=== PATIENT | male | born 1990 | race Caucasian/White ===

== ENCOUNTER 2022-01-17 14:20 | Emergency (ER) | payer MEDICAID, SELFPAY ==
[2022-01-17 14:22] VITALS: BP 134/92; PULSE 137; RESP 20; TEMP 35.8; O2SAT 97; BMI 34.7
--- NOTE | 2022-01-17 14:28 | EKG12_ITS ---
Test Reason : Blood Pressure : / mmHG Vent. Rate : 121 BPM Atrial Rate : 121 BPM P-R Int : 160 ms QRS Dur : 084 ms QT Int : 306 ms P-R-T Axes : 045 058 008 degrees QTc Int : 434 ms Sinus tachycardia Cannot rule out Inferior infarct , age undetermined T wave abnormality, consider lateral ischemia Abnormal ECG Confirmed by HAVEN LOCKETT, ARTIS ([id number]), acquisition editor LEVI RAO ([id number]) on 01/21/2022 1:15:32 PM Referred By: Confirmed By:ARTIS OROURKE MD
[2022-01-17 14:44] VITALS: RESP 16; O2SAT 97
[2022-01-17 14:56] LABS: Absolute Lymphocyte Count 0.56 X10^3/uL (0.83-4.51); Absolute Neutrophil Count 3.6 X10^3/uL (2.0-7.7); Basophil# 0.02 X10^3/uL; Basophil% 0.4 % (0-1); Eosinophil# 0.01 X10^3/uL; Eosinophils% 0.2 % (0-5); Hematocrit 40.3 % (40-54); Hemoglobin 14.3 g/dL (13.0-16.5); Lymphocyte # 0.56 X10^3/ul (0.83-4.51); Lymphocyte % 11.6 % (19-41); Mean Corp Hgb Conc 35.5 g/dL (32-36); Mean Corpuscular Hgb 30.9 pg (27.0-32.0); Mean Platelet Vol. 9.1 fl (6.2-12.0); Monocyte# 0.59 X10^3/uL; Monocyte% 12.3 % (0-10); NRBC Flagged by Analyzer 0 % (0-5); Neutrophil % 74.9 % (47-70); POSITIVE DIFFERENTIAL YES; Platelet Count 199 K/mm3 (150-450); RBC Distribution Width CV 13.2 % (11.6-14.6); RBC Distribution Width SD 41.5 fl (35.1-43.9); Red Blood Count 4.63 M/mm3 (4.6-6.2); White Blood Count 4.8 K/mm3 (4.4-11.0)
[2022-01-17 14:58] LABS: Differential Indicated SCAN CRITERIA MET
[2022-01-17 15:04] LABS: Anion Gap 12 (5-15); BUN 17 mg/dL (7-18); BUN/Creat Ratio 15.9 RATIO (10-20); Calcium,Total 9.2 mg/dL (8.5-10.1); Chloride 102 mmol/L (98-107); Creatinine, Serum 1.07 mg/dL (0.70-1.30); EST Glomerular Filtration Rate 84 mL/min (>60); Est Glom Filt Rate - Afr Amer 102 mL/min (>60); Estimated Creatinine Clearance 120.56 ml/min; Glucose 182 mg/dL (74-106); Potassium 3.2 mmol/L (3.5-5.1); Sodium Level 136 mmol/L (136-145)
--- NOTE | 2022-01-17 15:44 | RAD_ITS ---
INDICATION: cough EXAMINATION/TECHNIQUE: X-RAY - XR Chest 1 View COMPARISON: None. FINDINGS: LINES/DEVICES: None. LUNGS: Hazy air space opacity partially obscures the left heart border. No consolidations or pleural effusions. MEDIASTINUM AND CARDIOVASCULAR STRUCTURES: Cardiac silhouette not enlarged. Central airways and mediastinal contour are unremarkable. BONES AND SOFT TISSUES: Unremarkable. RAD/Chest 1 View (Portable) IMPRESSION: Lingular infiltrate suspicious for pneumonia. Recommend short-term follow-up to resolution. Electronically Signed: Dalton Mendoza MD at 16:53 EDT ,
--- NOTE | 2022-01-17 16:40 | EX.ED.DYSGE1 ---
HPI History of Present Illness Chief Complaint: Cold Sx Informant: patient Onset/Context/Timing Onset: Yesterday Context: Sudden Onset Timing: Continuous Quality: Weakness, fatigue Location: Generalized Worsened by: Nothing Relieved by: Nothing Narrative Narrative: Patient presented with fatigue and weakness that began yesterday. Patient states it began rather suddenly. Patient states it has been constant. Patient states he feels weak all over. Patient states nothing makes it better nothing makes it worse. Patient admits to a headache. Patient admits to some nausea, vomiting, and diarrhea. Patient also admits to cough with some green sputum. Patient admits to some shortness of breath and pain in his chest. Patient admits to subjective chills but denies any fevers. [facility] Medical History (Updated 01/17/22 @ 18:[address] Shay Hurd DO) Epilepsy Hypertension Psoriasis Type 2 diabetes mellitus Home Medications azithromycin 250 mg tablet 250 mg PO DAILY #4 TABLETS 01/17/22 [Rx Last Taken Unknown] chlorthalidone 25 mg tablet 25 mg PO DAILY 01/17/22 [History Last Taken Unknown] glimepiride 2 mg tablet 2 mg PO DAILY 01/17/22 [History Last Taken Unknown] lamotrigine 100 mg tablet (Lamictal) 100 mg PO BID 01/17/22 [History Last Taken Unknown] lisinopril 40 mg tablet 40 mg PO DAILY 01/17/22 [History Last Taken Unknown] metformin 500 mg tablet,extended release 24 hr 500 mg PO BID 01/17/22 [History Last Taken Unknown] metoprolol tartrate 100 mg tablet 100 mg PO BID 01/17/22 [History Last Taken Unknown] Allergy/AdvReac Type Severity Reaction Status Date / Time Penicillins Allergy Hives Verified 01/17/22 14:21 Sulfa (Sulfonamide Allergy Hives Verified 01/17/22 14:21 Antibiotics) Surgical History no surgical history no surgical history Social History Smoking Status: Never smoker ROS ROS ED Constitutional Constitutional ED: Reports chills and subjective; Denies fever(s) Eyes Eyes: Denies blurry vision or change in vision ENT ENT ED: Denies rhinorrhea or sore throat Cardiovascular Cardiovascular: Reports chest pain; Denies palpitations Respiratory/Chest Respiratory/Chest: Reports cough and dyspnea Gastrointestinal Gastrointestinal: Reports diarrhea, nausea and vomiting Genitourinary Genitourinary ED: Denies dysuria or hematuria Musculoskeletal Musculoskeletal: Denies back pain or neck pain Integumentary Denies abscess or rash Neurologic Neurologic: Reports headache(s) and weakness Allergic/Immunologic Allergic/Immunologic ED: Denies mouth swelling or urticaria EXAM Physical Exam Const Vital Signs: 01/17/22 14:22 01/17/22 14:44 01/17/22 17:04 Temperature 96.5 F L Temperature Source Temporal Pulse Rate 137 H Respiratory Rate 20 H 16 Respiratory Effort Respiratory Pattern Blood Pressure 134/92 H Blood Pressure Mean 106 Pulse Ox 97 97 Oxygen Delivery Method Room Air Room Air Room Air 01/17/22 17:00 01/17/22 17:10 01/17/22 18:04 Temperature 101.5 F H 101.3 F H Temperature Source Oral Oral Pulse Rate 113 H 121 H Respiratory Rate 18 18 Respiratory Effort Normal Non-Labored Respiratory Pattern Normal Blood Pressure 140/96 H 154/98 H Blood Pressure Mean 110 116 Pulse Ox 95 98 Oxygen Delivery Method Room Air 01/17/22 18:04 Temperature 101.3 F H Temperature Source Oral Pulse Rate 119 H Respiratory Rate 18 Respiratory Effort Respiratory Pattern Blood Pressure 154/98 H Blood Pressure Mean 116 Pulse Ox 98 Oxygen Delivery Method Room Air Positive well nourished and well developed General Appearance ED: well developed and NAD HEENT Reports moist mucous membranes Neck supple and no JVD Resp normal respiratory effort and clear to auscultation bilaterally Cardio regular rhythm and no murmurs Rate: tachycardic GI normal to inspection, nondistended, normoactive bowel sounds and non-tender Palpation: soft Extremity normal to inspection General Extremety ED: Negative for edema or tenderness General Extremity: Negative for edema Neuro oriented x3, CN's II-XII intact bilaterally and no sensory deficits noted Sensorium / Orientation: alert Motor Exam: strength 5/5 throughout Psych mental status grossly normal Skin no rashes or lesions noted MDM MDM MDM Narrative Medical decision making narrative: Patient was given IV fluids. Patient was given a dose of Tylenol. Patient was given dose of Zofran. EKG was obtained. On my interpretation, it shows a sinus tachycardia with a rate of 121. There are nonspecific ST-T wave changes in the inferior and lateral leads. CA interval, QRS interval, and QTc intervals are within normal limits. [place] is normal. CBC was within normal limits. Basic metabolic profile showed a mild hypokalemia 3.2. Glucose was slightly elevated at 182. Hepatic profile was essentially within normal limits. High-sensitivity troponin was normal. Lipase was normal. Lactate was normal. COVID-19 rapid antigen was obtained and was negative. Portable chest x-ray was obtained. There is 1 view. On my interpretation, there is a left lingular infiltrate. Radiologist also interpreted the x-rays and agrees. Patient was given a dose of Zithromax here. Patient was given a prescription for Zithromax. Patient was instructed to follow-up with his primary care physician in 5 to 7 days. Patient understood and was agreeable with the plan. All questions were answered. Lab Data Attestation: I reviewed the patient's lab results. Labs: Laboratory Results - last 24 hr 01/17/22 01/17/22 01/17/22 14:40 14:40 17:19 WBC 4.8 RBC 4.63 Hgb 14.3 Hct 40.3 MCV 87.0 MCH 30.9 MCHC 35.5 RDW Std Deviation 41.5 RDW Coeff of Ida 13.2 Plt Count 199 MPV 9.1 Immature Gran % (Auto) 0.600 Neut % (Auto) 74.9 H Lymph % (Auto) 11.6 L [place] % (Auto) 12.3 H Eos % (Auto) 0.2 Baso % (Auto) 0.4 Absolute Neuts (auto) 3.6 Absolute Lymphs (auto) 0.56 L Nucleated RBC % 0 Sodium 136 Potassium 3.2 L Chloride 102 Carbon Dioxide 22.0 Anion Gap 12 BUN 17 Creatinine 1.07 Estim Creat Clear Calc 120.56 Est GFR (MDRD) Af Amer 102 Est GFR (MDRD) Non-Af 84 BUN/Creatinine Ratio 15.9 Glucose 182 H Lactic Acid Calcium 9.2 Total Bilirubin 0.60 Direct Bilirubin 0.21 AST 43 H ALT 69 H Alkaline Phosphatase 43 L Troponin I High Sens 5 Total Protein 7.1 Albumin 3.7 Globulin 3.4 Lipase 72 L 01/17/22 17:19 WBC RBC Hgb Hct MCV MCH MCHC RDW Std Deviation RDW Coeff of Ida Plt Count MPV Immature Gran % (Auto) Neut % (Auto) Lymph % (Auto) [place] % (Auto) Eos % (Auto) Baso % (Auto) Absolute Neuts (auto) Absolute Lymphs (auto) Nucleated RBC % Sodium Potassium Chloride Carbon Dioxide Anion Gap BUN Creatinine Estim Creat Clear Calc Est GFR (MDRD) Af Amer Est GFR (MDRD) Non-Af BUN/Creatinine Ratio Glucose Lactic Acid 1.9 Calcium Total Bilirubin Direct Bilirubin AST ALT Alkaline Phosphatase Troponin I High Sens Total Protein Albumin Globulin Lipase Radiography Chest X-Ray - ED: 1 View, Read by ED Physician, Read by Radiologist and Left Infiltrate Diagnostic Testing: Clinical Impression(s) from Imaging Studies Chest X-Ray 01/17/22 15:44 IMPRESSION: Lingular infiltrate suspicious for pneumonia. Recommend short-term follow-up to resolution. Electronically Signed: Dalton Mendoza MD at 16:53 EDT , EKG Initial EKG: Attestation: I personally reviewed and interpreted this EKG as follows: Interpretation: Sinus Tachycardia (121) and Non-Specific ST Changes Prior EKG tracings: not available for review Prior: No Prior Discharge Plan Triage Chief Complaint: Cold Sx ED Provider: Shay Hurd Dx/Rx/DC Orders Clinical Impression: Pneumonia, Obesity (BMI 30.0-34.9) Instructions: ED Pneumonia (Adult) Prescriptions: New azithromycin [azithromycin] 250 mg tablet 250 mg PO DAILY Qty: 4 0RF No Action metoprolol tartrate 100 mg tablet 100 mg PO BID Label Comments: TAKE 1 TABLET BY MOUTH TWICE DAILY chlorthalidone 25 mg tablet 25 mg PO DAILY Label Comments: Take 1 tablet by mouth once daily. glimepiride 2 mg tablet 2 mg PO DAILY Label Comments: TAKE 1 TABLET BY MOUTH EVERY DAY WITH BREAKFAST lisinopril 40 mg tablet 40 mg PO DAILY Label Comments: Take 1 tablet by mouth once daily. metformin 500 mg tablet extended release 24 hr 500 mg PO BID Label Comments: TAKE 2 TABLETS BY MOUTH TWICE DAILY WITH FOOD lamotrigine [Lamictal] 100 mg Tablet 100 mg PO BID Stand Alone Forms: ED Work / School Excuse Primary Care Provider: Sharon Zhou NP Referrals: [facility],Out of [Non-Staff] - 5-7 Days Disposition Disposition: Home, Self Care
[2022-01-17 17:00] VITALS: BP 140/96; PULSE 113; RESP 18; TEMP 38.6; O2SAT 95
[2022-01-17] MEDS: 0.9% Normal Saline 1,000 ML 1000 ML IV ×2 (17:02→18:09)
[2022-01-17] MEDS: Ondansetron 4 MG/2 ML Vial IV (17:03)
[2022-01-17 17:46] LABS: AST(SGOT) 43 U/L (15-37); Alanine Aminotransfer ALT/SGPT 69 U/L (16-61); Albumin, Serum 3.7 g/dL (3.2-5.0); Alkaline Phosphatase 43 U/L (45-117); Bilirubin, Direct 0.21 mg/dL (0.00-0.30); Globulin 3.4 g/dL (2.2-4.2); Lipase 72 U/L (73-393); Protein, Total 7.1 g/dL (6.4-8.2); Troponin-I HS 5 pg/mL (3.0-78.0)
[2022-01-17 17:57] LABS: Lactic Acid 1.9 mmol/L (0.4-1.9)
[2022-01-17 18:04] VITALS: BP 154/98; PULSE 119; PULSE 121; RESP 18; TEMP 38.5; O2SAT 98
[2022-01-17] MEDS: Acetaminophen 500 MG Tablet 1000 MG PO (18:34)
[2022-01-17] MEDS: Azithromycin 250 MG Tablet 500 MG PO (18:34)
[2022-01-17 19:13] VITALS: BP 146/88; PULSE 85; RESP 18; O2SAT 94
== END 2022-01-17 19:42 | disposition home or self-care (01) ==
PROVIDERS: Emergency Provider Emergency Medicine; PCP Nurse Practitioner Adult Health; Visit Provider Emergency Medicine
DX: J18.9 Pneumonia, unspecified organism (principal); E11.9 Type 2 diabetes mellitus without complications; E66.9 Obesity, unspecified; R51.9 Headache, unspecified; I10 Essential (primary) hypertension; R07.9 Chest pain, unspecified
CPT/HCPCS: 71045; 80048; 80076; 83605; 83690; 84484; 85025; 87811; 93005; 94760; 96361; 96374; 99284; J7030; J2405